=== PATIENT | female | born 1995 | race Caucasian/White ===

== ENCOUNTER 2018-06-13 06:55 | Emergency (ER) | payer OTHER, BC ==
[2018-06-13] MEDS ORDERED: Acetaminophen 325 MG Tab PO ONE (07:17)
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
--- NOTE | 2018-06-13 09:51 | CR ---
Lumbar spine: AP and lateral views of the lumbar spine were obtained. Comparison: No prior lumbar spine imaging. Vertebral body heights and disc spaces are maintained. Pedicles as well as visualized transverse and spinous processes are intact. No subluxation or fracture is seen. Impression: 1. No abnormality is identified on two-view lumbar spine exam. Diagnostic code #1
== END 2018-06-13 07:55 | disposition home or self-care (01) ==
LOC: JD.ED 06:55
DX: S39.012A Strain of muscle, fascia and tendon of lower back, initial encounter (principal); Z91.040 Latex allergy status; Z88.5 Allergy status to narcotic agent; V59.49XA Driver of pick-up truck or van injured in collision with other motor vehicles in traffic accident, initial encounter; Y92.411 Interstate highway as the place of occurrence of the external cause
CPT/HCPCS: 72100; 99284; A9270

== ENCOUNTER 2018-09-15 08:10 | Emergency (ER) | payer BC ==
--- NOTE | 2018-09-15 09:04 | EDM.PDOC ---
ED HPI GENERAL MEDICAL PROBLEM - General Chief Complaint: Genitourinary Problem Stated Complaint: TAMPON STUCK IN VAGINA Time Seen by Provider: 09/15/18 08:40 Source of Information: Reports: Patient History Limitations: Reports: No Limitations - History of Present Illness INITIAL COMMENTS - FREE TEXT/NARRATIVE: The patient presents with a tampon in her vagina. She put a super absorbent tampon in last night and she cannot find the strings to get it out. She cannot feel it either. She has some dull cramps but she is on her period. Onset: Gradual Duration: Day(s): (Last night) Location: Reports: Pelvis (Ach) Quality: Reports: Ache Severity: Mild Improves with: Reports: None Worsens with: Reports: None Associated Symptoms: Reports: No Other Symptoms Lower Pelvic Pain Score (Numeric/FACES): 3 - Related Data Allergies Allergy/AdvReac Type Severity Reaction Status Date / Time latex Allergy Hives Verified 09/15/18 08:29 hydromorphone [From Dilaudid] AdvReac Other Verified 09/15/18 08:29 Home Meds: Home Meds . [No Known Home Meds] 01/03/18 [History] Past Medical History - Past Health History Medical/Surgical History: Denies Medical/Surgical History Psychiatric History: Reports: Depression Other Psychiatric History: patient states she is supposed to be taking her depression meds but has not been taking them as she should Social & Family History - Caffeine Use Caffeine Use: Reports: Coffee, Energy Drinks, Soda, Tea ED ROS GENERAL - Review of Systems Review Of Systems: See Below Constitutional: Reports: No Symptoms HEENT: Reports: No Symptoms Respiratory: Reports: No Symptoms Cardiovascular: Reports: No Symptoms Endocrine: Reports: No Symptoms GI/Abdominal: Reports: Abdominal Pain (ache) : Reports: Other (pelvic ache) ED EXAM, RENAL/ - Physical Exam Exam: See Below Exam Limited By: No Limitations General Appearance: Alert, No Apparent Distress Ears: Normal External Exam Nose: Normal Inspection Head: Atraumatic, Normocephalic Neck: Normal Inspection Respiratory/Chest: No Respiratory Distress (Female) Exam: Other (Vaginal bleeding and a tampon was found and removed fully intact) Course - Vital Signs Last Recorded V/S: Last Vital Signs Temp 97.8 F 09/15/18 08:21 Pulse 102 H 09/15/18 08:21 Resp 18 09/15/18 08:21 BP 109/75 09/15/18 08:21 Pulse Ox 98 09/15/18 08:21 - Re-Assessments/Exams Free Text/Narrative Re-Assessment/Exam: 09/15/18 09:03 I was able to find the tampon and it was intact. I will discharge her home. Departure - Departure Time of Disposition: 09:05 Disposition: Home, Self-Care 01 Condition: Good Clinical Impression: Retained tampon Qualifiers: Encounter type: initial encounter Qualified Code(s): T19.2XXA - Foreign body in vulva and vagina, initial encounter - Discharge Information *PRESCRIPTION DRUG MONITORING PROGRAM REVIEWED*: Not Applicable *COPY OF PRESCRIPTION DRUG MONITORING REPORT IN PATIENT FRANCIS: Not Applicable Referrals: Adina Spence PA-C [Primary Care Provider] - Additional Instructions: Please return if you have any more concerns.
== END 2018-09-15 09:05 | disposition home or self-care (01) ==
LOC: JD.ED 08:10
DX: T19.2XXA Foreign body in vulva and vagina, initial encounter (principal); Z91.040 Latex allergy status; Z88.5 Allergy status to narcotic agent
CPT/HCPCS: 99282; 99283

== ENCOUNTER 2020-04-12 16:51 | Emergency (ER) | payer BC ==
--- NOTE | 2020-04-12 17:22 | EDM.PDOC ---
<Nicolas Dimas - Last Filed: 04/12/20 19:02> ED HPI GENERAL MEDICAL PROBLEM - General Chief Complaint: Abdominal Pain Stated Complaint: RIGHT SIDE LOWER ABD PAIN Time Seen by Provider: 04/12/20 17:12 - History of Present Illness INITIAL COMMENTS - FREE TEXT/NARRATIVE: 24-year-old female presents to the emergency room with significant right lower quadrant pain. She has had some vague abdominal discomfort through most of the day. Then about an hour before arrival it became very severe. She said some nausea with this no associated vomiting or diarrhea. She has not had any constipation. She is not aware of any fevers or chills. Driving in the car makes the pain a lot worse especially hitting bumps. Patient has no prior history of abdominal surgeries she has had problems with ovarian cyst in the past but this is different. Patient denies she uses control. She had her period almost 2 weeks ago. - Related Data Allergies Allergy/AdvReac Type Severity Reaction Status Date / Time latex Allergy Hives Verified 09/15/18 08:29 hydromorphone [From Dilaudid] AdvReac Other Verified 09/15/18 08:29 Home Meds: Home Meds FLUoxetine [PROzac] 40 mg PO DAILY 04/12/20 [History] Hydrocodone/Acetaminophen [Hydrocodon-Acetaminophen 5-325] 1 each PO Q4H PRN #15 tablet 04/12/20 [Rx] Omeprazole 20 mg PO DAILY 04/12/20 [History] busPIRone [Buspar] 10 mg PO DAILY 04/12/20 [History] hydrOXYzine HCL [hydrOXYzine] 50 mg PO DAILY 04/12/20 [History] lamoTRIgine [Lamictal] 200 mg PO DAILY 04/12/20 [History] norgestimate-ethinyl estradioL [Sprintec 28 Day Tablet] 1 tab PO DAILY 04/12/20 [History] valACYclovir [Valtrex] 1,000 mg PO DAILY 04/12/20 [History] Past Medical History - Past Health History Medical/Surgical History: Denies Medical/Surgical History 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 Denies: Constipation, Diarrhea, Vomiting : Reports: No Symptoms Musculoskeletal: Reports: No Symptoms Skin: Reports: No Symptoms ED EXAM, GI/ABD - Physical Exam Exam: See Below Exam Limited By: No Limitations General Appearance: Alert, No Apparent Distress Head: Atraumatic, Normocephalic Neck: Normal Inspection, Supple, Non-Tender, Full Range of Motion. No: Lymphadenopathy (L), Lymphadenopathy (R) Respiratory/Chest: No Respiratory Distress, Lungs Clear, Normal Breath Sounds Cardiovascular: Regular Rate, Rhythm, No Edema, No Murmur GI/Abdominal Exam: Normal Bowel Sounds, Guarding, Rebound, Tender (Significant right lower quadrant discomfort with palpation with associated rebound discomfort. And then she developed some guarding after pressing on her abdomen. If I pound on her right heel with her leg outstretched this causes significant pain in this area) Course - Re-Assessments/Exams Free Text/Narrative Re-Assessment/Exam: 04/12/20 19:10 Labs are not that remarkable patient is in CT at this point awaiting the results of this. At this time is change of shift further care and disposition per Luna Abebe nurse practitioner. Departure - Departure Disposition: Home, Self-Care 01 Clinical Impression: Ovarian cyst Qualifiers: Laterality: right Qualified Code(s): N83.201 - Unspecified ovarian cyst, right side - Discharge Information Prescriptions: Hydrocodone/Acetaminophen [Hydrocodon-Acetaminophen 5-325] 1 each PO Q4H PRN #15 tablet PRN Reason: Pain Instructions: Ovarian Cyst, [id number] Referrals: Adina Spence PA-C [Primary Care Provider] - Elena Hays MD [Physician] - Forms: ED Department Discharge, ED Return to Work/School Form Additional Instructions: You were seen in the emergency department today for right lower quadrant abdominal pain. Work-up included blood work, Alysis, CT scan of the abdomen pelvis, and a pelvic ultrasound. Results of your work-up were consistent with a diagnosis of a right-sided hemorrhagic ovarian cyst. While in the ER, you received a small amount of morphine through your IV for pain management. Recommend that you take ibuprofen routinely for management of pain. Her pain not relieved by ibuprofen, a prescription for [place] has been sent to [place] [facility]. Take this medication as prescribed. Do not drive or work for 12 hours after taking this medication as it can be sedating. Recommend that you call to schedule a follow-up appointment with Dr. Hays for sometime this week. Return to ER for any new or worsening symptoms. Sepsis Event Note (ED) - Evaluation Sepsis Screening Result: No Definite Risk <Luna Abebe - Last Filed: 04/16/20 21:58> Course - Vital Signs Last Recorded V/S: Last Vital Signs Temp 97.3 F 04/12/20 17:07 Pulse 75 04/12/20 17:07 Resp 16 04/12/20 17:07 BP 125/90 04/12/20 17:07 Pulse Ox 96 04/12/20 17:07 - Orders/Labs/Meds Labs: Laboratory Tests 04/12/20 04/12/20 04/12/20 Range/Units 17:25 17:25 17:59 WBC 8.19 (3.98-10.04) K/mm3 RBC 4.37 (3.98-5.22) M/mm3 Hgb 12.6 D (11.2-15.7) gm/dl Hct 37.3 (34.1-44.9) % MCV 85.4 (79.4-94.8) fl MCH 28.8 (25.6-32.2) pg MCHC 33.8 (32.2-35.5) g/dl RDW Std Deviation 45.1 (36.4-46.3) fL Plt Count 297 (182-369) K/mm3 MPV 10.7 (9.4-12.3) fl Neut % (Auto) 54.7 (34.0-71.1) % Lymph % (Auto) 35.3 (19.3-51.7) % Lawrence % (Auto) 9.6 (4.7-12.5) % Eos % (Auto) 0.1 L (0.7-5.8) Baso % (Auto) 0.2 (0.1-1.2) % Neut # (Auto) 4.47 (1.56-6.13) K/mm3 Lymph # (Auto) 2.89 (1.18-3.74) K/mm3 Lawrence # (Auto) 0.79 H (0.24-0.36) K/mm3 Eos # (Auto) 0.01 L (0.04-0.36) K/mm3 Baso # (Auto) 0.02 (0.01-0.08) K/mm3 Sodium (136-145) mEq/L Potassium (3.5-5.1) mEq/L Chloride (98-107) mEq/L Carbon Dioxide (21-32) mEq/L Anion Gap (5-15) BUN (7-18) mg/dL Creatinine (0.55-1.02) mg/dL Est Cr Clr Drug Dosing mL/min Estimated GFR (MDRD) (>60) mL/min BUN/Creatinine Ratio (14-18) Glucose (74-106) mg/dL Calcium (8.5-10.1) mg/dL Total Bilirubin (0.2-1.0) mg/dL AST (15-37) U/L ALT (14-59) U/L Alkaline Phosphatase (46-116) U/L Total Protein (6.4-8.2) g/dl Albumin (3.4-5.0) g/dl Globulin gm/dL Albumin/Globulin Ratio (1-2) Urine Color Yellow (Yellow) Urine Appearance Clear (Clear) Urine pH 6.5 (5.0-8.0) Ur Specific [place] > or = 1.030 (1.005-1.030) Urine Protein Trace H (Negative) Urine Glucose (UA) Negative (Negative) Urine Ketones Trace H (Negative) Urine Occult Blood Negative (Negative) Urine Nitrite Negative (Negative) Urine Bilirubin Negative (Negative) Urine Urobilinogen 1.0 (0.2-1.0) Ur Leukocyte Esterase Negative (Negative) Urine RBC 0-5 (0-5) /hpf Urine WBC 0-5 (0-5) /hpf Ur Squamous Epith Cells 10-20 H (0-5) /hpf Urine Bacteria Few (FEW) /hpf Urine Mucus Few (FEW) /hpf Urine HCG, Qual Negative (NEGATIVE) 04/12/20 Range/Units 17:59 WBC (3.98-10.04) K/mm3 RBC (3.98-5.22) M/mm3 Hgb (11.2-15.7) gm/dl Hct (34.1-44.9) % MCV (79.4-94.8) fl MCH (25.6-32.2) pg MCHC (32.2-35.5) g/dl RDW Std Deviation (36.4-46.3) fL Plt Count (182-369) K/mm3 MPV (9.4-12.3) fl Neut % (Auto) (34.0-71.1) % Lymph % (Auto) (19.3-51.7) % Lawrence % (Auto) (4.7-12.5) % Eos % (Auto) (0.7-5.8) Baso % (Auto) (0.1-1.2) % Neut # (Auto) (1.56-6.13) K/mm3 Lymph # (Auto) (1.18-3.74) K/mm3 Lawrence # (Auto) (0.24-0.36) K/mm3 Eos # (Auto) (0.04-0.36) K/mm3 Baso # (Auto) (0.01-0.08) K/mm3 Sodium 138 (136-145) mEq/L Potassium 3.7 (3.5-5.1) mEq/L Chloride 103 (98-107) mEq/L Carbon Dioxide 26 (21-32) mEq/L Anion Gap 12.7 (5-15) BUN 8 (7-18) mg/dL Creatinine 0.8 (0.55-1.02) mg/dL Est Cr Clr Drug Dosing 90.47 mL/min Estimated GFR (MDRD) > 60 (>60) mL/min BUN/Creatinine Ratio 10.0 L (14-18) Glucose 86 (74-106) mg/dL Calcium 9.2 (8.5-10.1) mg/dL Total Bilirubin 0.4 (0.2-1.0) mg/dL AST 20 (15-37) U/L ALT 28 (14-59) U/L Alkaline Phosphatase 81 (46-116) U/L Total Protein 6.7 (6.4-8.2) g/dl Albumin 3.5 (3.4-5.0) g/dl Globulin 3.2 gm/dL Albumin/Globulin Ratio 1.1 (1-2) Urine Color (Yellow) Urine Appearance (Clear) Urine pH (5.0-8.0) Ur Specific [place] (1.005-1.030) Urine Protein (Negative) Urine Glucose (UA) (Negative) Urine Ketones (Negative) Urine Occult Blood (Negative) Urine Nitrite (Negative) Urine Bilirubin (Negative) Urine Urobilinogen (0.2-1.0) Ur Leukocyte Esterase (Negative) Urine RBC (0-5) /hpf Urine WBC (0-5) /hpf Ur Squamous Epith Cells (0-5) /hpf Urine Bacteria (FEW) /hpf Urine Mucus (FEW) /hpf Urine HCG, Qual (NEGATIVE) Meds: Medications Discontinued Medications Generic Name Dose Route Start Last Admin Trade Name Freq PRN Reason Stop Dose Admin Lactated Ringer's 1,000 mls @ 999 mls/hr 04/12/20 18:14 04/12/20 18:31 Ringers, Lactated IV 04/12/20 19:14 999 mls/hr .BOLUS ONE Administration Lactated Ringer's 1,000 mls @ 125 mls/hr 04/12/20 18:15 04/12/20 19:38 Ringers, Lactated IV 125 mls/hr ASDIRECTED [place] Administration Morphine Sulfate 2 mg 04/12/20 20:10 04/12/20 20:17 Morphine IVPUSH 04/12/20 20:11 2 mg ONETIME ONE Administration - Re-Assessments/Exams Free Text/Narrative Re-Assessment/Exam: 04/12/202014 Care assumed from Dr. Lizabeth Rodas MD at end of shift. CT scan of the abdomen pelvis shows enlarged right ovary containing a hemorrhagic cyst. Small amount of free fluid within the pelvis above physiologic limits, nonspecific. I did reexamine the patient myself. She has significant right lower quadrant tenderness with positive rebound tenderness. She also complains of referred pain to the right lower quadrant from with palpation to essentially any area of your abdomen with the exception of the left upper quadrant. Pelvic exam was completed and was positive for cervical motion tenderness. There was no abnormal or bloody discharge within the vagina. Called and spoke with the AUTO BODY ESTIMATOR on-call, Dr. Hays. She recommended that we complete an ultrasound of the abdomen pelvis and notify her with the results. I have ordered a transvaginal non-OB ultrasound. Have also ordered morphine 2 mg IV as patient is quite uncomfortable. 04/12/20 21:25 Results of the transvaginal ultrasound showed a moderate amount of nonspecific free fluid in the cul-de-sac. Hemorrhagic cyst cysts of the right ovary. No further work-up necessary according to guidelines. Flow confirmed to right ovary. Results discussed with Dr. Hays. She was also able to visualize the ultrasound at home. She verbalized that pain is likely due to the hemorrhagic cyst. She recommended that she follow-up with her in the clinic sometime this coming week. We will send a prescription for [place] for pain. Discharge instructions as documented. Departure - Departure Time of Disposition: 21:32 Condition: Good - Discharge Information *PRESCRIPTION DRUG MONITORING PROGRAM REVIEWED*: Yes *COPY OF PRESCRIPTION DRUG MONITORING REPORT IN PATIENT FRANCIS: No
[2020-04-12] MEDS ORDERED: Lactated Ringers 1,000 ML IV ONE (18:14)
[2020-04-12] MEDS ORDERED: Lactated Ringers 1,000 ML IV SCH (18:15)
[2020-04-12] MEDS ORDERED: Morphine 2 MG/ML SYRINGE IVPUSH ONE (20:10)
--- NOTE | 2020-04-13 08:44 | CT ---
Addendum created by Cali Tan MD on 04/12/2020 8:20 PM Central Time ([place] & [place]): Impression: 3. These findings were not present on January 03, 2018. Initial Report created on 04/12/2020 8:20 PM Central Time ([place] & [place]): PROCEDURE INFORMATION: Exam: CT Abdomen And Pelvis With Contrast Exam date and time: 04/12/2020 6:12 PM Age: 24 years old Clinical indication: Abdominal pain; Patient HX: Lower abd pain TECHNIQUE: Imaging protocol: Computed tomography of the abdomen and pelvis with intravenous contrast. Contrast material: ISOVUE 300; Contrast volume: 96 ml; Contrast route: INTRAVENOUS (IV); COMPARISON: CT Chest Abdomen Pelvis w Cont 01/03/2018 11:32 PM FINDINGS: Lungs: There are dependent densities at each lung base, most likely reflecting passive atelectasis. Liver: The liver is normal in architecture, without suspicious abnormality. Gallbladder and bile ducts: No calcified gallstones. No ductal dilation. Pancreas: The pancreatic parenchyma is normal in bulk and sharply marginated. Duct is not dilated. No calcifications, masses, or abnormal fluid collections. Spleen: Spleen is normal in size. No mass or fluid collection. Adrenal glands: There are no adrenal masses. Kidneys and ureters: Normal in parenchymal bulk. No hydronephrosis or asymmetric perinephric stranding. No solid masses. No stones. Stomach and bowel: No significant abnormalities of the stomach. There are no dilated or thickened small bowel loops. Gas and stool are seen in the colon to the rectum. No mass. Appendix: The appendix is seen. It is normal. Intraperitoneal space: Small amount of free fluid in the pelvis above physiologic limits, nonspecific. There is no pneumoperitoneum, abscess, or mass. Vasculature: No aneurysm. Lymph nodes: No enlarged lymph nodes. Urinary bladder: Unremarkable as visualized. Reproductive: Enlarged right ovary measuring approximately 6 x 3.3 by 4.3 cm. Ovoid right ovarian nodule whose attenuation is above that of fluid. The lesion measuring 2.5 x 4.2 cm. Appearance consistent with hemorrhagic cyst. Bones/joints: Age appropriate. No acute fracture. No dislocation. There are no suspicious lytic or osteosclerotic lesions. Soft tissues: No suspicious soft tissue masses, soft tissue gas of significance, or hernia. IMPRESSION: 1. Enlarged right ovary containing a hemorrhagic cyst. 2. Small amount of free fluid in the pelvis above physiologic limits, nonspecific. Thank you for allowing us to participate in the care of your patient. Dictated and Authenticated by: Cali aTn MD 04/12/2020 8:20 PM Central Time ([place] & [place]) [facility]
--- NOTE | 2020-04-13 08:46 | US ---
PROCEDURE INFORMATION: Exam: US Pelvis, Transvaginal Exam date and time: 04/12/2020 8:43 PM Age: 24 years old Clinical indication: Pelvic pain; Patient HX: Rlq pain, CT shows hemorrhagic cyst in right ovary TECHNIQUE: Imaging protocol: Real-time transvaginal pelvic ultrasound with image documentation. Transvaginal imaging was used for better evaluation of the endometrium, adnexa, and/or cervix. COMPARISON: CT Abdomen Pelvis w Cont 04/12/2020 6:12 PM FINDINGS: Uterus/cervix: Uterus is normal in size and echogenicity. No myometrial mass. Its dimensions are 7.2 x 5 x 4 cm. Normal. No endometrial mass. No fluid in the canal. Endometrial canal 1.1 cm, within normal limits. Right adnexa: Right ovary is seen. Blood flow is present. Corresponding to CT abnormality, there is a hemorrhagic cyst of the right ovary measuring 3.4 x 3 x 2.3 cm.Follow-up not needed. No suspicious mass. The right ovary measures 4.6 x 4.4 x 3.2 cm. Left adnexa: Left ovary is seen. Blood flow is present. No suspicious mass. Left ovary measures 3.7 x 2.8 x 2 cm. Multiple follicles are present. Intraperitoneal space: Moderate amount of nonspecific free fluid in the cul-de-sac. IMPRESSION: 1. Moderate amount of nonspecific free fluid in the cul-de-sac. 2. Hemorrhagic cyst right ovary. No further workup necessary according to guidelines. 3. Blood flow confirmed to the right ovary. Thank you for allowing us to participate in the care of your patient. Dictated and Authenticated by: Cali Tan MD 04/12/2020 10:15 PM Central Time ([place] & [place]) [facility]Robert
== END 2020-04-12 21:39 | disposition home or self-care (01) ==
LOC: JD.ED 16:51
DX: N83.201 Unspecified ovarian cyst, right side (principal); F41.9 Anxiety disorder, unspecified; F32.9 Major depressive disorder, single episode, unspecified; Z91.040 Latex allergy status; Z88.5 Allergy status to narcotic agent; Z79.899 Other long term (current) drug therapy
CPT/HCPCS: 36415; 74177; 76830; 80053; 81001; 81025; 85025; 96374; 99284; J2270; J7120

== ENCOUNTER 2020-08-19 15:14 | Emergency (ER) | payer BC ==
[2020-08-19] MEDS ORDERED: Sodium Chloride 0.9% 10 ML Syringe FLUSH PRN (15:38)
[2020-08-19] MEDS ORDERED: Ondansetron 4 MG/2 ML SDV IVPUSH ONE (15:38)
[2020-08-19] MEDS ORDERED: Sodium Chloride 0.9% 1,000 ML IV STA (15:38)
[2020-08-19] MEDS ORDERED: fentaNYL 100 MCG/2 ML SDV IVPUSH ONE (15:42)
--- NOTE | 2020-08-19 16:01 | EDM.PDOC ---
ED HPI GENERAL MEDICAL PROBLEM - General Chief Complaint: Gastrointestinal Problem Stated Complaint: RIB/BACK PAIN/VOMITING/SOB Time Seen by Provider: 08/19/20 15:23 Source of Information: Reports: Patient History Limitations: Reports: No Limitations - History of Present Illness INITIAL COMMENTS - FREE TEXT/NARRATIVE: The patient presents with right upper quadrant abdominal pain, nausea and vomiting. This all started just before arrival. She was at the dog park and had a zinger drink that has orange juice, red bull, and blue raspberry juice. She developed the pain shortly after. She last ate around 11:30am. She says she has a family history of gallbladder issues. She still has her gallbladder and appendix. She has no diarrhea or dysuria. She did not eat any bad food or has been around anyone who is sick. She says the pain radiated to her back. Onset: Sudden Duration: Minutes: Location: Reports: Abdomen, Back Quality: Reports: Sharp Severity: Severe Improves with: Reports: None Worsens with: Reports: None Associated Symptoms: Reports: Fever/Chills, Nausea/Vomiting. Denies: Chest Pain, Cough, Headaches, Shortness of Breath - Related Data Allergies Allergy/AdvReac Type Severity Reaction Status Date / Time latex Allergy Hives Verified 08/19/20 15:27 hydromorphone [From Dilaudid] AdvReac Other Verified 08/19/20 15:27 Home Meds: Home Meds FLUoxetine [PROzac] 40 mg PO DAILY 04/12/20 [History] Omeprazole 20 mg PO DAILY 04/12/20 [History] busPIRone [Buspar] 10 mg PO DAILY 04/12/20 [History] hydrOXYzine HCL [hydrOXYzine] 50 mg PO DAILY 04/12/20 [History] lamoTRIgine [Lamictal] 200 mg PO DAILY 04/12/20 [History] norgestimate-ethinyl estradioL [Sprintec 28 Day Tablet] 1 tab PO DAILY 04/12/20 [History] valACYclovir [Valtrex] 1,000 mg PO DAILY 04/12/20 [History] Hydrocodone/Acetaminophen [Hydrocodone-Acetamin 5-325 mg] 1 - 2 each PO Q6HR PRN #15 tablet 08/19/20 [Rx] Ondansetron [Zofran ODT] 4 mg PO Q6H PRN #20 tab.dis 08/19/20 [Rx] Past Medical History - Past Health History Medical/Surgical History: Denies Medical/Surgical History Gastrointestinal History: Reports: GERD 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 Denies: Fever HEENT: Reports: No Symptoms Respiratory: Reports: No Symptoms Cardiovascular: Reports: No Symptoms Endocrine: Reports: No Symptoms GI/Abdominal: Reports: Abdominal Pain, Nausea, Vomiting. Denies: Diarrhea : Reports: No Symptoms Musculoskeletal: Reports: Back Pain (pain radiated to the back) ED EXAM, GI/ABD - Physical Exam Exam: See Below Exam Limited By: No Limitations General Appearance: Alert, No Apparent Distress Ears: Normal External Exam Nose: Normal Inspection Head: Atraumatic, Normocephalic Neck: Normal Inspection Respiratory/Chest: No Respiratory Distress, Lungs Clear, Normal Breath Sounds Cardiovascular: Regular Rate, Rhythm, No Edema, No Murmur GI/Abdominal Exam: Soft, No Organomegaly, No Mass, Tender (Moderate tenderness to the right upper abdomen) Course - Vital Signs Last Recorded V/S: Last Vital Signs Temp 97.0 F 08/19/20 15:24 Pulse 86 08/19/20 15:24 Resp 16 08/19/20 15:24 BP 124/102 H 08/19/20 15:24 Pulse Ox 100 08/19/20 15:24 - Orders/Labs/Meds Orders: Active Orders 24 hr Category Date Time Status Peripheral IV Care [RC] . DIRECTED Care 08/19/20 15:38 Active Abdomen Ltd [US] Stat Exams 08/19/20 15:38 Taken Sodium Chloride 0.9% [Saline Flush] Med 08/19/20 15:38 Active 10 ml FLUSH ASDIRECTED PRN ED Antiemetic Medication Reflex [OM.PC] Stat Oth 08/19/20 15:38 Ordered Peripheral IV Insertion Adult [OM.PC] Stat Oth 08/19/20 15:38 Ordered Medication Orders Sodium Chloride (Sodium Chloride 0.9% 10 Ml Syringe) 10 ml FLUSH ASDIRECTED PRN PRN Reason: Keep Vein Open Last Admin: 08/19/20 15:55 Dose: 10 ml Documented by: TANVI Labs: Laboratory Tests 08/19/20 08/19/20 08/19/20 Range/Units 15:50 15:50 15:50 WBC 8.07 (3.98-10.04) K/mm3 RBC 4.68 (3.98-5.22) M/mm3 Hgb 13.4 (11.2-15.7) gm/dl Hct 39.8 (34.1-44.9) % MCV 85.0 (79.4-94.8) fl MCH 28.6 (25.6-32.2) pg MCHC 33.7 (32.2-35.5) g/dl RDW Std Deviation 45.2 (36.4-46.3) fL Plt Count 311 (182-369) K/mm3 MPV 10.5 (9.4-12.3) fl Neut % (Auto) 54.6 (34.0-71.1) % Lymph % (Auto) 36.4 (19.3-51.7) % [place] % (Auto) 8.6 (4.7-12.5) % Eos % (Auto) 0.1 L (0.7-5.8) Baso % (Auto) 0.2 (0.1-1.2) % Neut # (Auto) 4.40 (1.56-6.13) K/mm3 Lymph # (Auto) 2.94 (1.18-3.74) K/mm3 [place] # (Auto) 0.69 H (0.24-0.36) K/mm3 Eos # (Auto) 0.01 L (0.04-0.36) K/mm3 Baso # (Auto) 0.02 (0.01-0.08) K/mm3 Sodium 141 (136-145) mEq/L Potassium 3.6 (3.5-5.1) mEq/L Chloride 103 (98-107) mEq/L Carbon Dioxide 26 (21-32) mEq/L Anion Gap 15.6 H (5-15) BUN 11 (7-18) mg/dL Creatinine 0.9 (0.55-1.02) mg/dL Est Cr Clr Drug Dosing 83.95 mL/min Estimated GFR (MDRD) > 60 (>60) mL/min BUN/Creatinine Ratio 12.2 L (14-18) Glucose 115 H (74-106) mg/dL Calcium 9.6 (8.5-10.1) mg/dL Total Bilirubin 0.2 (0.2-1.0) mg/dL AST 18 (15-37) U/L ALT 34 (14-59) U/L Alkaline Phosphatase 90 (46-116) U/L Total Protein 7.5 (6.4-8.2) g/dl Albumin 3.8 (3.4-5.0) g/dl Globulin 3.7 gm/dL Albumin/Globulin Ratio 1.0 (1-2) Lipase 94 (73-393) U/L HCG, Qual Negative (NEGATIVE) Meds: Medications Generic Name Dose Route Start Last Admin Trade Name Freq PRN Reason Stop Dose Admin Sodium Chloride 10 ml 08/19/20 15:38 08/19/20 15:55 Sodium Chloride 0.9% 10 Ml Syringe FLUSH 10 ml ASDIRECTED PRN Administration Keep Vein Open Discontinued Medications Generic Name Dose Route Start Last Admin Trade Name Freq PRN Reason Stop Dose Admin Fentanyl 100 mcg 08/19/20 15:42 08/19/20 15:55 Fentanyl 100 Mcg/2 Ml Sdv IVPUSH 08/19/20 15:43 100 mcg ONETIME ONE Administration Sodium Chloride 1,000 mls @ 1,000 mls/hr 08/19/20 15:38 08/19/20 15:51 Normal Saline IV 08/19/20 16:37 1,000 mls/hr .BOLUS STA Administration Ondansetron HCl 4 mg 08/19/20 15:38 08/19/20 15:53 Ondansetron 4 Mg/2 Ml Sdv IVPUSH 08/19/20 15:39 4 mg ONETIME ONE Administration - Re-Assessments/Exams Free Text/Narrative Re-Assessment/Exam: 08/19/20 16:03 I ordered an IV NS 1L bolus, zofran 4mg IV, dilaudid 1mg IV, labs, UA and an US of her right upper abdomen. 08/19/20 17:19 Her CBC and CMP look good. Her lipase is normal. Her HCG is negative. Her US shows cholelithiasis and hepatic steatosis. She feels better. I talked with Dr Maxwell and he can see her tomorrow at 1:30. 08/19/20 17:23 She is still feeling good but I will give her something for pain and nausea. Departure - Departure Time of Disposition: 17:30 Disposition: Home, Self-Care 01 Condition: Good Clinical Impression: Cholelithiasis Qualifiers: Cholelithiasis location: gallbladder Cholecystitis presence: without cholecystitis Biliary obstruction: without biliary obstruction Qualified Code(s ): K80.20 - Calculus of gallbladder without cholecystitis without obstruction - Discharge Information *PRESCRIPTION DRUG MONITORING PROGRAM REVIEWED*: Not Applicable *COPY OF PRESCRIPTION DRUG MONITORING REPORT IN PATIENT FRANCIS: Not Applicable Prescriptions: Hydrocodone/Acetaminophen [Hydrocodone-Acetamin 5-325 mg] 1 - 2 each PO Q6HR PRN #15 tablet PRN Reason: Pain Ondansetron [Zofran ODT] 4 mg PO Q6H PRN #20 tab.dis PRN Reason: Nausea\vomiting Referrals: Adina Spence PA-C [Primary Care Provider] - Jaime Maxwell MD [Physician] - 1 Day Forms: ED Department Discharge Additional Instructions: Try to avoid any fried fatty foods. If you have nausea and vomiting take the zofran every 6 hours as needed. If you have pain try the hydrocodone. Follow up with Dr Maxwell tomorrow at 1:30pm at our clinic. Please come early to register. Please return if you are worse. Sepsis Event Note (ED) - Evaluation Sepsis Screening Result: No Definite Risk - Focused Exam Vital Signs: Vital Signs Temp Pulse Resp BP Pulse Ox 08/19/20 15:24 97.0 F 86 16 124/102 H 100 - My Orders Last 24 Hours: My Active Orders 08/19/20 15:38 Peripheral IV Care [RC] . DIRECTED Abdomen Ltd [US] Stat Sodium Chloride 0.9% [Saline Flush] 10 ml FLUSH ASDIRECTED PRN ED Antiemetic Medication Reflex [OM.PC] Stat Peripheral IV Insertion Adult [OM.PC] Stat - Assessment/Plan Last 24 Hours: My Active Orders 08/19/20 15:38 Peripheral IV Care [RC] . DIRECTED Abdomen Ltd [US] Stat Sodium Chloride 0.9% [Saline Flush] 10 ml FLUSH ASDIRECTED PRN ED Antiemetic Medication Reflex [OM.PC] Stat Peripheral IV Insertion Adult [OM.PC] Stat
--- NOTE | 2020-08-19 17:52 | US ---
Limited abdominal ultrasound: Multiple real-time images of the upper right abdomen were obtained. Comparison: Prior CT abdomen and pelvis study of 01/03/18. Visualized pancreas shows no discrete abnormality. Liver is echogenic as related to the kidney compatible with fatty infiltration. Right kidney shows no hydronephrosis or mass and has a length of 10.4 cm. Single gallstone is noted within the gallbladder measuring around 1.4 cm. No gallbladder wall thickening or biliary duct dilatation is seen. Inferior vena cava is patent. Main portal vein shows normal hepatopedal flow. Impression: 1. Fatty liver. 2. Single gallstone within the gallbladder with no gallbladder wall thickening or biliary duct dilatation. 3. No additional abnormality is appreciated. Diagnostic code #3 I agree with preliminary report from [facility], finalized on 08/19/20, 5:57 PM CDT
== END 2020-08-19 17:38 | disposition home or self-care (01) ==
LOC: JD.ED 15:14
DX: K80.20 Calculus of gallbladder without cholecystitis without obstruction (principal); K21.9 Gastro-esophageal reflux disease without esophagitis; Z86.16 Personal history of COVID-19; Z91.040 Latex allergy status; Z88.5 Allergy status to narcotic agent; Z79.899 Other long term (current) drug therapy
CPT/HCPCS: 36415; 76705; 80053; 83690; 84703; 85025; 96374; 96375; 99284; J2405; J3010; J7030

== ENCOUNTER 2020-08-24 09:23 | Day surgery (SDC) | payer BC ==
--- NOTE | 2020-08-24 09:17 | PCM.PREANE ---
Preanesthetic Assessment - Procedure Proposed Procedure: Laparoscopic Cholecystectomy - Anesthesia/Transfusion/Family Hx Anesthesia History: No Prior Anesthesia Family History of Anesthesia Reaction: No Transfusion History: No Prior Transfusion(s) Intubation History: Unknown - Review of Systems General: No Symptoms Pulmonary: No Symptoms (Smoker: less than 1ppd for less than 5 years ETOH: rarely) Cardiovascular: No Symptoms, Dyspnea on Exertion (from being deconditioned) Gastrointestinal: No Symptoms (GERD-controlled), Nausea Neurological: No Symptoms Other: Reports: Easy Bruising, Sinus Problem (Allergic rhinitis), Depression (History of suicide attempt/ Borderline personality disorder/PTSD), Anxiety - Physical Assessment NPO Status Date: 08/23/20 NPO Status Time: 22:00 Vital Signs: HR:84 Sat:96% Temp:97.2 Resp:16 B/P:134/88 Height: 1.6 m Weight: 84 kg ASA Class: 2 Mental Status: Alert & Oriented x3 Airway Class: Mallampati = 2 Dentition: Reports: Normal Dentition (upper retainer), Caries Thyro-Mental Finger Breadths: 3 Mouth Opening Finger Breadths: 3 ROM/Head Extension: Full Lungs: Clear to Auscultation, Normal Respiratory Effort Cardiovascular: Regular Rate, Regular Rhythm, No Murmurs - Lab Values: All labs reviewed and noted and within acceptable ranges to proceed with scheduled procedure. - Allergies Allergies/Adverse Reactions: Allergies Allergy/AdvReac Type Severity Reaction Status Date / Time corn Allergy Other Verified 08/23/20 14:37 kiwi Allergy Other Verified 08/23/20 14:37 latex Allergy Hives Verified 08/19/20 15:27 hydromorphone [From Dilaudid] AdvReac Other Verified 08/19/20 15:27 - Anesthesia Plan Pre-Op Medication Ordered: None - Acknowledgements Anesthesia Type Planned: General Anesthesia Pt an Appropriate Candidate for the Planned Anesthesia: Yes Alternatives and Risks of Anesthesia Discussed w Pt/Guardian: Yes Pt/Guardian Understands and Agrees with Anesthesia Plan: Yes PreAnesthesia Questionnaire - Past Health History Medical/Surgical History: Denies Medical/Surgical History HEENT History: Reports: Allergic Rhinitis Gastrointestinal History: Genitourinary History: Reports: STD, UTI, Recurrent 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: Reports: Polycystic Ovaries Other OB/BYN History: abnormal uterine bleeding, pelvic pain Psychiatric History: Reports: Anxiety, Bipolar, Depression, PTSD, Suicide Attempt Other Psychiatric History: borderline personality disorder Hematologic History: Reports: Anemia - Infectious Disease History Infectious Disease History: Reports: Herpes, Novel Coronavirus - Past Surgical History HEENT Surgical History: Reports: Oral Surgery - SUBSTANCE USE Tobacco Use Status *Q: Never Tobacco User Recreational Drug Use History: No - HOME MEDS Home Medications: Home Meds FLUoxetine [PROzac] 40 mg PO DAILY 04/12/20 [History] Omeprazole 20 mg PO DAILY 04/12/20 [History] busPIRone [Buspar] 10 mg PO DAILY 04/12/20 [History] hydrOXYzine HCL [hydrOXYzine] 50 mg PO DAILY 04/12/20 [History] lamoTRIgine [Lamictal] 200 mg PO DAILY 04/12/20 [History] norgestimate-ethinyl estradioL [Sprintec 28 Day Tablet] 1 tab PO DAILY 04/12/20 [History] valACYclovir [Valtrex] 1,000 mg PO DAILY PRN 04/12/20 [History] Cranberry 1 cap PO DAILY 08/23/20 [History] Pnv No.95/Ferrous Fum/Folic AC [ Caplet] 1 tab PO DAILY 08/23/20 [History] Pumpkin Seed Extract/Soy Germ [Azo Bladder Control Capsule] 1 cap PO DAILY 08/23/20 [History] - CURRENT (IN HOUSE) MEDS Current Meds: Current Medications Lactated Ringer's (Ringers, Lactated) 1,000 mls @ 125 mls/hr IV ASDIRECTED [place] Stop: 08/24/20 23:00 Lidocaine/Sodium Bicarbonate (Lidocaine 1%/Sod Bicarbonate In Ns 8.4% 1 Ml Syringe) 0.25 ml IDERM ONETIME PRN PRN Reason: Prior to IV Start Stop: 08/24/20 18:00 Sodium Chloride (Sodium Chloride 0.9% 10 Ml Syringe) 10 ml FLUSH ASDIRECTED PRN PRN Reason: Keep Vein Open Stop: 08/24/20 18:00 Discontinued Medications Cefazolin Sodium (Cefazolin 1 Gm Vial) Confirm Administered Dose 2 gm .ROUTE .STK-MED ONE Stop: 08/24/20 07:55 Dexamethasone (Dexamethasone 4 Mg/Ml 5 Ml Mdv) Confirm Administered Dose 20 mg .ROUTE .STK-MED ONE Stop: 08/24/20 07:56 Fentanyl (Fentanyl 250 Mcg/5 Ml Sdv) Confirm Administered Dose 250 mcg .ROUTE .STK-MED ONE Stop: 08/24/20 07:55 Lidocaine HCl (Xylocaine-Mpf 1%) Confirm Administered Dose 4 mls @ as directed .ROUTE .STK-MED ONE Stop: 08/24/20 07:55 Lactated Ringer's (Ringers, Lactated) Confirm Administered Dose 1,000 mls @ as directed .ROUTE .STK-MED ONE Stop: 08/24/20 07:55 Midazolam HCl (Midazolam 1 Mg/Ml 2 Ml Sdv) Confirm Administered Dose 2 mg .ROUTE .STK-MED ONE Stop: 08/24/20 07:55 Ondansetron HCl (Ondansetron 4 Mg/2 Ml Sdv) Confirm Administered Dose 4 mg .ROUTE .STK-MED ONE Stop: 08/24/20 07:55 Propofol (Propofol 200 Mg/20 Ml Sdv) Confirm Administered Dose 400 mg .ROUTE .STK-MED ONE Stop: 08/24/20 07:55 Rocuronium [place] (Rocuronium 50 Mg/5 Ml Vial) Confirm Administered Dose 50 mg .ROUTE .STK-MED ONE Stop: 08/24/20 07:55
[~2020-08-24 09:23] MED LIST: Dexamethasone 4 MG/ML 5 ML MDV ONE; Lactated Ringers 1,000 ML IV SCH; Lactated Ringers 1,000 ML ONE; Lidocaine 1% 4 ML ONE; Lidocaine 1%/Sod Bicarbonate in NS 8.4% 1 ML Syringe IDERM PRN; Midazolam 1 MG/ML 2 ML SDV ONE; Ondansetron 4 MG/2 ML SDV ONE; Propofol 200 MG/20 ML SDV ONE; Rocuronium 50 MG/5 ML Vial ONE; Sodium Chloride 0.9% 10 ML Syringe FLUSH PRN; ceFAZolin 1 GM Vial ONE; fentaNYL 250 MCG/5 ML SDV ONE
[2020-08-24] MEDS ORDERED: Bupivacaine 0.5%/EPINEPHrine 1:200,000 50 ML MDV ONE (09:29)
[2020-08-24] MEDS ORDERED: Ketorolac 30 MG/ML SDV ONE (10:23)
[2020-08-24] MEDS ORDERED: diphenhydrAMINE 50 MG/ML SDV IVPUSH PRN (10:33)
[2020-08-24] MEDS ORDERED: Phenylephrine/Normal Saline 100 MCG/ML 10 ML Syringe IVPUSH PRN (10:33)
[2020-08-24] MEDS ORDERED: Ondansetron 4 MG/2 ML SDV IVPUSH PRN (10:33)
[2020-08-24] MEDS ORDERED: Midazolam 1 MG/ML 2 ML SDV IVPUSH PRN (10:33)
[2020-08-24] MEDS ORDERED: Albuterol 0.083% 2.5 MG/3 ML Neb Soln NEB PRN (10:33)
[2020-08-24] MEDS ORDERED: ePHEDrine 50 MG/ML SDV IVPUSH PRN (10:33)
[2020-08-24] MEDS ORDERED: Ketamine 500 mg/10 ML MDV ONE (10:59)
[2020-08-24] MEDS ORDERED: Propofol 200 MG/20 ML SDV ONE (10:59)
--- NOTE | 2020-08-24 12:00 | PCM.PRNOTE ---
- Free Text/Narrative Note: Date: 08/24/2020 Operation: laparoscopic cholecystectomy Indication: symptomatic cholelithiasis Surgeon: Jaime Maxwell MD Findings: normal anatomy. Gallstones in gallbladder. Critical view of safety obtained. Detailed Report: The patient was taken to the operating room and placed in supine position. Timeout was performed and general endotracheal anesthesia was initiated. The abdomen was prepped and draped in usual sterile fashion. A Veress needle was placed the left upper quadrant to establish pneumoperitoneum. Air was aspirated with needle and syringe just inferior to the umbilicus. A bladed 5 mm trocar was placed blindly at this site. The 5 mm 30 degree laparoscope was inserted into the abdomen. There was no inadvertent injury from Veress placement. The needle was removed and additional ports were placed under laparoscopic visualization. 2 additional 5 mm ports were placed the right upper quadrant, and a 12 mm bladed trocar was placed at the subxiphoid area. The fundus of the gallbladder was grasped and retracted cephalad. The infundibulum was grasped and retracted laterally, and dissection ensued. Hook electrocautery was used to divide visceral peritoneum of the gallbladder and start to expose cystic structures. Combination of hook cautery and dissection with the [place] grasper were used, and a critical view of safety was obtained with 2 and only 2 structures seen going to the gallbladder; the cystic duct and cystic artery. Hemolock clips were placed on the structures, with 2 on the stay side for the cystic duct. Structures were divided sharply with laparoscopic reed. The gallbladder was removed from the liver using electrocautery. The gallbladder re mained intact during dissection was placed in an Endo Catch bag and removed through the subxiphoid port. There was minimal bleeding from the edge of the liver and this was controlled with electrocautery. The dissection field appeared clean. The 12 mm port was removed and this site was closed at the level of fascia with 0 Vicryl using a laparoscopic suture passer. The right upper quadrant ports were removed under laparoscopic visualization and no bleeding was noted. Pneumoperitoneum was released and the final port was removed from the umbilical site. Incisions were all closed at the level of skin with 4-0 Vicryl and dressed with Dermabond. The patient tolerated the procedure well, was extubated in the operating room and transferred to the recovery unit for routine postanesthesia care.
--- NOTE | 2020-08-24 12:05 | PCM.POSTAN ---
POST ANESTHESIA ASSESSMENT - MENTAL STATUS Mental Status: Oriented, Other (Drowsy) - VITAL SIGNS Vital Signs: Last Vital Signs Temp 36.2 C 08/24/20 09:35 Pulse 84 08/24/20 09:35 Resp 16 08/24/20 09:35 BP 134/88 08/24/20 09:35 Pulse Ox 96 08/24/20 09:35 - RESPIRATORY Respiratory Status: Respiratory Rate WNL, Airway Patent, O2 Saturation Stable, Supplemental Oxygen - CARDIOVASCULAR CV Status: Pulse Rate WNL, Blood Pressure Stable - GASTROINTESTINAL GI Status: No Symptoms - PAIN Pain Score: 0 - POST OP HYDRATION Hydration Status: Adequate & Stable
[2020-08-24] MEDS ORDERED: Promethazine 12.5 MG in Sodium Chloride 0.9% 50 ML IV PRN (12:14)
[2020-08-24] MEDS: fentaNYL 100 MCG/2 ML SDV IVPUSH PRN ×4 (12:22→13:45)
[2020-08-24] MEDS ORDERED: HYDROmorphone 0.5 MG/0.5 ML Syringe IVPUSH ONE (12:37)
[2020-08-24] MEDS ORDERED: oxyCODONE 5 MG Tab PO PRN (12:50)
--- NOTE | 2020-08-24 14:08 | PCM48HPAN ---
Post Anesthesia Note - EVALUATION WITHIN 48HRS OF ANESTHETIC Vital Signs in Normal Range: Yes Patient Participated in Evaluation: Yes Respiratory Function Stable: Yes Airway Patent: Yes Cardiovascular Function Stable: Yes Hydration Status Stable: Yes Pain Control Satisfactory: Yes (Improving, oral medications given. ) Nausea and Vomiting Control Satisfactory: Yes (Resolved episode of nausea. ) Mental Status Recovered: Yes Vital Signs: Last Vital Signs Temp 36.3 C 08/24/20 11:57 Pulse 91 08/24/20 13:30 Resp 16 08/24/20 13:30 BP 118/72 08/24/20 13:30 Pulse Ox 94 L 08/24/20 13:30
== END 2020-08-24 14:48 | disposition home or self-care (01) ==
LOC: JD.SDS 09:23
PROVIDERS: ATTEND Surgery
DX: K80.10 Calculus of gallbladder with chronic cholecystitis without obstruction (principal); F17.210 Nicotine dependence, cigarettes, uncomplicated; Z91.040 Latex allergy status; Z91.09 Other allergy status, other than to drugs and biological substances; Z91.018 Allergy to other foods; Z91.5 Personal history of self-harm; Z86.16 Personal history of COVID-19; Z79.899 Other long term (current) drug therapy; Z98.890 Other specified postprocedural states
CPT/HCPCS: 47562; 81025; A9270; J0690; J1100; J1170; J1200; J1885; J2250; J2370; J2405; J2550; J2704; J2710; J3010; J3490; J7120; 00790

== ENCOUNTER 2020-08-26 09:27 | Emergency (ER) | payer BC ==
[2020-08-26] MEDS ORDERED: Dextrose 5%-0.9% NaCl 1,000 ML IV SCH (09:45)
[2020-08-26] MEDS ORDERED: Ondansetron 4 MG/2 ML SDV IVPUSH ONE (09:49)
[2020-08-26] MEDS ORDERED: fentaNYL 100 MCG/2 ML SDV IVPUSH ONE ×2 (09:49→11:24)
--- NOTE | 2020-08-26 09:49 | EDM.PDOC ---
ED HPI GENERAL MEDICAL PROBLEM - General Chief Complaint: General Stated Complaint: ISSUE WITH INCISION AND KIDNEY PAIN POST SURGERY Time Seen by Provider: 08/26/20 09:40 Source of Information: Reports: Patient History Limitations: Reports: No Limitations - History of Present Illness INITIAL COMMENTS - FREE TEXT/NARRATIVE: 24-year-old female presents to the ED primarily for evaluation of postoperative abdominal pain. Patient underwent a laparoscopic cholecystectomy by Dr. Jaime Maxwell 2 days ago August 24. Patient states her dog at home jumped on her abdomen last night and seemed to exacerbate her pain. She feels the same type of pain she had when she was experiencing gallbladder attack or biliary colic. Pain is primarily right upper quadrant the abdomen made worse by deep breathing or coughing. The incision in the right upper abdomen below the costal margin is the one that hurts the worst. It appears that this is where the gallbladder was removed. She also has not had a bowel movement for about 4 days. Poor appetite remains. She took a Percocet tablet about 0330 hrs. this morning with minimal relief of the pain. No associated fever chills nausea or vomiting. No dysuria urgency or frequency. Pain radiates to her right back underneath her scapula. Feels it on both sides but is worse on the right side. Onset Date: 08/24/20 (Had her gallbladder removed laparoscopically on August 24. Continued abdominal pain since.) Duration: Day(s):, Constant, Getting Worse Location: Reports: Abdomen Quality: Reports: Ache (Merrily right upper quadrant epigastric abdominal pain.), Stabbing Severity: Moderate (Occasional sharp stabbing pain. 7-8 out of 10) Improves with: Reports: Rest Worsens with: Reports: Other (Deep breathing or coughing makes it much worse.), Movement Context: Reports: Other (2 days postop laparoscopic cholecystectomy). Denies: Activity, Exercise, Lifting, Sick Contact, Trauma Associated Symptoms: Reports: Loss of Appetite, Malaise, Shortness of Breath (Subjective shortness of breath is taking a deep breath makes the pain in her right upper quadrant worse.). 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.) Abdomen Pain Score (Numeric/FACES): 9 - Related Data Allergies Allergy/AdvReac Type Severity Reaction Status Date / Time corn Allergy Other Verified 08/26/20 09:45 kiwi Allergy Other Verified 08/26/20 09:45 latex Allergy Hives Verified 08/26/20 09:45 hydromorphone [From Dilaudid] AdvReac Other Verified 08/26/20 09:45 Home Meds: Home Meds FLUoxetine [PROzac] 40 mg PO DAILY 04/12/20 [History] Omeprazole 20 mg PO DAILY 04/12/20 [History] busPIRone [Buspar] 10 mg PO DAILY 04/12/20 [History] hydrOXYzine HCL [hydrOXYzine] 50 mg PO DAILY 04/12/20 [History] lamoTRIgine [Lamictal] 200 mg PO DAILY 04/12/20 [History] norgestimate-ethinyl estradioL [Sprintec 28 Day Tablet] 1 tab PO DAILY 04/12/20 [History] valACYclovir [Valtrex] 1,000 mg PO DAILY PRN 04/12/20 [History] Cranberry 1 cap PO DAILY 08/23/20 [History] Pnv No.95/Ferrous Fum/Folic AC [ Caplet] 1 tab PO DAILY 08/23/20 [History] Pumpkin Seed Extract/Soy Germ [Azo Bladder Control Capsule] 1 cap PO DAILY 08/23/20 [History] oxyCODONE 5 mg PO Q4H PRN #20 tab 08/24/20 [Rx] Hydrocodone/Acetaminophen [Hydrocodone-Acetamin 5-325 mg] 1 each PO Q4H PRN #10 tablet 08/25/20 [Rx] Acetaminophen/HYDROcodone [Cotton 325-5 MG] 1 - 2 tab PO Q4H PRN #20 tablet 08/26/20 [Rx] polyethylene glycoL 3350 [MiraLAX] 17 gm PO DAILY #1 cont 08/26/20 [Rx] Past Medical History - Past Health History Medical/Surgical History: Denies Medical/Surgical History HEENT History: Reports: Allergic Rhinitis Gastrointestinal History: Genitourinary History: Reports: STD, UTI, Recurrent WOMEN'S GARMENT FITTER History: Reports: Polycystic Ovaries Other WOMEN'S GARMENT FITTER History: abnormal uterine bleeding, pelvic pain Psychiatric History: Reports: Anxiety, Bipolar, Depression, PTSD, Suicide Attempt Other Psychiatric History: borderline personality disorder Hematologic History: Reports: Anemia - Infectious Disease History Infectious Disease History: 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 Denies: Fever, Chills, Weight Loss HEENT: Reports: No Symptoms Respiratory: Reports: Shortness of Breath (Subjective shortness of breath.). Denies: Pleuritic Chest Pain ( As deep breathing makes the right upper quadrant abdominal pain worse.), Cough, Sputum, Hemoptysis Cardiovascular: Reports: Blood Pressure Problem. Denies: Chest Pain, Claudication, Dyspnea on Exertion, Edema, Lightheadedness, Orthopnea, Palpitations Endocrine: Reports: Fatigue GI/Abdominal: Reports: Abdominal Pain (See history of present illness.), Constipation (No bowel movement for the last 4 days.) : Reports: No Symptoms Musculoskeletal: Reports: No Symptoms Skin: Reports: No Symptoms Neurological: Reports: No Symptoms Psychiatric: Reports: No Symptoms Hematologic/Lymphatic: Reports: No Symptoms Immunologic: Reports: No Symptoms ED EXAM, GENERAL - Physical Exam Exam: See Below Exam Limited By: No Limitations General Appearance: Alert, WD/WN, No Apparent Distress, Other (Temperature is 36.4 degrees and she does not feel warm to palpation. Heart rate is 100 with respiratory to 14 and O2 sats of 96% on room air BP is mildly elevated 1 40-1 01.) Eye Exam: Bilateral Eye: Normal Inspection (No scleral icterus or blepharal pallor.), PERRL Throat/Mouth: Normal Inspection, Normal Lips, Normal Teeth, Normal Oropharynx, Other Head: Atraumatic, Normocephalic (Tongue is moist) Neck: Normal Inspection, Supple, Non-Tender, Full Range of Motion. No: Carotid Bruit, Lymphadenopathy (L), Lymphadenopathy (R) Respiratory/Chest: No Respiratory Distress, Lungs Clear, No Accessory Muscle Use, Decreased Breath Sounds (Decreased breath sounds to the right), Splinting (Side). No: Rales, Rhonchi, Wheezing Cardiovascular: Normal Peripheral Pulses, Regular Rate, Rhythm, No Edema, No Gallop, No Murmur, No Rub Peripheral Pulses: 3+: Carotid (L), Carotid (R), Posterior Tibial (L), Posterior Tibial (R), Dorsalis Pedis (L), Dorsalis Pedis (R) GI/Abdominal: Normal Bowel Sounds, Soft, No Organomegaly, Distended (Mildly distended and tympanic to percussion right upper quadrant and epigastrium.), Tender (Tenderness is associated with laparoscopic surgical wounds. The largest wound is in the upper right mid abdomen just below the costal margin and appears to be the site of removal of gallbladder. This area reveals significant bruising around the wound. She is tender at all puncture wounds. No per) Back Exam: Normal Inspection, Full Range of Motion, CVA Tenderness (R) (Mild), Decreased Range of Motion. No: CVA Tenderness (L) Extremities: Normal Inspection (Painful to sit up from lying down position on the gurney.), Normal Range of Motion, Non-Tender, No Pedal Edema Neurological: Alert, Oriented, CN II-XII Intact, Normal Cognition Psychiatric: Normal Affect, Normal Mood Skin Exam: Warm, Dry, Intact, Ecchymosis (Normal amount of postoperative ecchymoses laparoscopic surgical wounds) Course - Vital Signs Last Recorded V/S: Last Vital Signs Temp 36.4 C 08/26/20 09:34 Pulse 100 08/26/20 09:34 Resp 14 08/26/20 09:34 BP 142/101 H 08/26/20 09:34 Pulse Ox 96 08/26/20 09:34 - Orders/Labs/Meds Orders: Active Orders 24 hr Category Date Time Status URINALYSIS W/MICROSCOPIC [UA W/MICROSCOPIC] [URIN] Stat Lab 08/26/20 09:51 Ordered Dextrose 5%-0.9% NaCl [Dextrose 5%-Normal Saline] 1,000 Med 08/26/20 09:45 Active ml IV ASDIRECTED Medication Orders Dextrose/Sodium Chloride (Dextrose 5%-Normal Saline) 1,000 mls @ 999 mls/hr IV ASDIRECTED [place] Last Admin: 08/26/20 10:02 Dose: 999 mls/hr Documented by: KAREN Labs: Laboratory Tests 08/26/20 08/26/20 Range/Units 10:01 10:01 WBC 8.02 (3.98-10.04) K/mm3 RBC 4.37 (3.98-5.22) M/mm3 Hgb 12.5 (11.2-15.7) gm/dl Hct 37.8 (34.1-44.9) % MCV 86.5 (79.4-94.8) fl MCH 28.6 (25.6-32.2) pg MCHC 33.1 (32.2-35.5) g/dl RDW Std Deviation 47.5 H (36.4-46.3) fL Plt Count 288 (182-369) K/mm3 MPV 10.3 (9.4-12.3) fl Neut % (Auto) 46.4 (34.0-71.1) % Lymph % (Auto) 43.1 (19.3-51.7) % Rice % (Auto) 10.0 (4.7-12.5) % Eos % (Auto) 0.2 L (0.7-5.8) Baso % (Auto) 0.2 (0.1-1.2) % Neut # (Auto) 3.71 (1.56-6.13) K/mm3 Lymph # (Auto) 3.46 (1.18-3.74) K/mm3 Rice # (Auto) 0.80 H (0.24-0.36) K/mm3 Eos # (Auto) 0.02 L (0.04-0.36) K/mm3 Baso # (Auto) 0.02 (0.01-0.08) K/mm3 Sodium 141 (136-145) mEq/L Potassium 3.9 (3.5-5.1) mEq/L Chloride 104 (98-107) mEq/L Carbon Dioxide 28 (21-32) mEq/L Anion Gap 12.9 (5-15) BUN 8 (7-18) mg/dL Creatinine 0.9 (0.55-1.02) mg/dL Est Cr Clr Drug Dosing 80.42 mL/min Estimated GFR (MDRD) > 60 (>60) mL/min BUN/Creatinine Ratio 8.9 L (14-18) Glucose 84 (74-106) mg/dL Calcium 9.1 (8.5-10.1) mg/dL Total Bilirubin 0.2 (0.2-1.0) mg/dL AST 31 (15-37) U/L ALT 54 (14-59) U/L Alkaline Phosphatase 68 (46-116) U/L Total Protein 7.2 (6.4-8.2) g/dl Albumin 3.4 (3.4-5.0) g/dl Globulin 3.8 gm/dL Albumin/Globulin Ratio 0.9 L (1-2) Lipase 83 (73-393) U/L Meds: Medications Generic Name Dose Route Start Last Admin Trade Name Freq PRN Reason Stop Dose Admin Dextrose/Sodium Chloride 1,000 mls @ 999 mls/hr 08/26/20 09:45 08/26/20 10:02 Dextrose 5%-Normal Saline IV 999 mls/hr ASDIRECTED [place] Administration Discontinued Medications Generic Name Dose Route Start Last Admin Trade Name Freq PRN Reason Stop Dose Admin Fentanyl 50 mcg 08/26/20 09:49 08/26/20 10:02 Fentanyl 100 Mcg/2 Ml Sdv IVPUSH 08/26/20 09:50 50 mcg ONETIME ONE Administration Ondansetron HCl 4 mg 08/26/20 09:49 08/26/20 10:02 Ondansetron 4 Mg/2 Ml Sdv IVPUSH 08/26/20 09:50 4 mg ONETIME ONE Administration - Radiology Interpretation Free Text/Narrative:: 24-year-old female presents to the ED 2 days postop laparoscopic cholecystectomy primarily for pain management. She is having increased right upper quadrant abdominal pain and epigastric pain postop. She states her pet dog jumped on her abdomen last night and since then pain is been exacerbated in the right upper quadrant. It hurts to deep breathe and to cough. She took 1 Percocet tablet at 0330 hrs. this morning without any significant relief of the pain. No bowel movement for the last 4 days as well. Has had decreased oral intake of food and fluids since surgery. Examination reveals normal postoperative bruising at laparoscopic surgical wounds. Diffuse abdominal tenderness secondary to operative site pain. Bowel sounds are active in all 4 quadrants. Tympany to percussion right upper quadrant epigastrium. Plan IV D5 normal saline at open. Fentanyl 50 mcg IV for pain relief with Zofran 2 mg IV for nausea. Toradol is relatively contraindicated as the patient is on fluoxetine. 2 view abdomen to be obtained routine labs to include CMP CRP and lipase. It is suspect that increased pain is secondary to carbon dioxide gas accumulation right upper quadrant of the abdomen. She does have some very mild right upper shoulder pain in the distribution of the trapezius muscle. 2 view X-ray of the abdomen will be obtained. - Re-Assessments/Exams Free Text/Narrative Re-Assessment/Exam: 08/26/20 10:19 Hematology reveals a normal white count at 8.02 with 46% neutrophils and 43% lymphocytes on the auto differential. Hemoglobin is 12.5 with hematocrit of 37.8 MCV is normal at 86.5 platelet count normal at 288,000 08/26/20 10:31 2 view of the abdomen has been completed. It does reveal increased air throughout the colon particular the transverse colon. There is increased stool throughout the right hemicolon and hepatic flexure of the transverse colon. There is also stool within the descending colon. There is an area of small bowel increased air in the central abdomen without air-fluid levels to suggest obstruction. Patient is feeling somewhat improved after fentanyl 50 mcg IV with less pain in her back and able to take a deeper breath. 08/26/20 11:10 Sodium is 141 with potassium 3.9. Chloride is 104 with a bicarb of 28. Anion gap is 12.9. BUN is 8 with a creatinine of 0.9 and a GFR greater than 60. Glucose is 84 with a calcium of 9.1. Bilirubin is 0.2 AST 31 ALT of 54. Alkaline phosphatase normal at 68. Total protein is 7.2 with an albumin fraction of 3.4. Lipase is normal at 83. Pain is coming back as the fentanyl has now worn off. Will repeat fentanyl 50 mcg IV. She was discharged on Citroma to take ounces mixed with 6 ounces of Gatorade or Powerade once to provide bowel cleanse. Refill hydrocodone 5/325 mg tablets--1-2 tablets every 4 hours as necessary for pain relief. She will also start MiraLAX powder 17 g daily for the next 2 weeks to prevent further constipation problems. Departure - Departure Time of Disposition: 11:14 Disposition: Home, Self-Care 01 Condition: Fair Clinical Impression: Postoperative abdominal pain, Constipation by delayed colonic transit - Discharge Information *PRESCRIPTION DRUG MONITORING PROGRAM REVIEWED*: Not Applicable *COPY OF PRESCRIPTION DRUG MONITORING REPORT IN PATIENT FRANCIS: Not Applicable Prescriptions: polyethylene glycoL 3350 [MiraLAX] 17 gm PO DAILY #1 cont Acetaminophen/HYDROcodone [Cotton 325-5 MG] 1 - 2 tab PO Q4H PRN #20 tablet PRN Reason: abdominal pain. Referrals: Adina Spence PA-C [Primary Care Provider] - Forms: ED Department Discharge Additional Instructions: Evaluation in the emergency room today in regards to postoperative abdominal pain. Examination reveals pain at sites of abdominal incisions as 1 might anticipate. You are having some right sided chest pain related to air up under your liver along the lower portion of the diaphragm. Your body will reabsorb this area over the next 48 hours. Chest pain shoulder pain should go away completely. X-ray of the abdomen reveals increased stool combined with constipation particular throughout the right side of your colon and underneath the liver causing further discomfort and pain. Lab test do not reveal any signs of infection or problems with your liver or pancreas. Treatment is to continue hydrocodone tablets 5/325 mg strength 1 or 2 every 4-6 hours as necessary for pain relief. You will need to start MiraLAX powder 17 g once daily starting today to help prevent further issues with constipation. You will need to take magnesium citrate or Citroma 10 ounces by mouth mixed with 6 ounces of juice of choice or Gatorade /Powerade when you get home this morning. This will take 1 to 4 hours to work and provide bowel cleanse. You will usually have 1-4 bowel movements after taking the magnesium citrate. Sepsis Event Note (ED) - Evaluation Sepsis Screening Result: No Definite Risk - Focused Exam Vital Signs: Vital Signs Temp Pulse Resp BP Pulse Ox 08/26/20 09:34 36.4 C 100 14 142/101 H 96 - My Orders Last 24 Hours: My Active Orders 08/26/20 09:45 Dextrose 5%-0.9% NaCl [Dextrose 5%-Normal Saline] 1,000 ml IV ASDIRECTED 08/26/20 09:51 URINALYSIS W/MICROSCOPIC [UA W/MICROSCOPIC] [URIN] Stat - Assessment/Plan Last 24 Hours: My Active Orders 08/26/20 09:45 Dextrose 5%-0.9% NaCl [Dextrose 5%-Normal Saline] 1,000 ml IV ASDIRECTED 08/26/20 09:51 URINALYSIS W/MICROSCOPIC [UA W/MICROSCOPIC] [URIN] Stat
--- NOTE | 2020-08-26 10:41 | CR ---
Abdomen: Supine and upright views of the abdomen were obtained. Comparison: Prior abdominal x-ray of 11/30/11. Scattered stool and gas are noted within the colon. Bowel gas pattern is felt to be within normal limits. No abnormal calcifications are seen. No soft tissue abnormality is seen. No free air is seen. Bony structures appear within normal limits. Impression: 1. Nothing acute is seen on upright and supine abdominal x-ray. Diagnostic code #1
[2020-08-26] MEDS ORDERED: Magnesium Citrate Solution 296 ML Bottle PO ONE (11:15)
== END 2020-08-26 11:36 | disposition home or self-care (01) ==
LOC: JD.ED 09:27
DX: K59.01 Slow transit constipation (principal); G89.18 Other acute postprocedural pain; R10.9 Unspecified abdominal pain; Z91.018 Allergy to other foods; Z91.040 Latex allergy status; Z88.5 Allergy status to narcotic agent; Z79.899 Other long term (current) drug therapy
CPT/HCPCS: 36415; 74019; 80053; 81001; 83690; 85025; 96374; 96375; 96376; 99283; A9270; J2405; J3010; J7042; 99284

== ENCOUNTER 2020-09-14 08:50 | Emergency (ER) | payer BC ==
[2020-09-14] MEDS ORDERED: Ketorolac 30 MG/ML SDV IVPUSH ONE (09:28)
--- NOTE | 2020-09-14 09:33 | EDM.PDOC ---
ED HPI GENERAL MEDICAL PROBLEM - General Chief Complaint: Abdominal Pain Stated Complaint: 3 WEEKS POST GALLBLADDER SURGERY HAVING PAIN Time Seen by Provider: 09/14/20 09:07 Source of Information: Reports: Patient History Limitations: Reports: No Limitations - History of Present Illness INITIAL COMMENTS - FREE TEXT/NARRATIVE: 24-year-old female presents to the emergency department today with complaints of right upper quadrant pain. Patient reports she had her gallbladder removed on 23 August and since then has complained of pain however she states that it has been manageable with ibuprofen. She states she had her follow-up appointment with her surgeon, Dr. Maxwell, last week and she said that he reported she is out of the "danger zone ". She states that last night she started developing a stabbing/burning pain to her right upper quadrant and states that she took some ibuprofen it did not help. She got up and went to work today and she states that it became significantly worse. She states she is not even able to palpate her right upper quadrant due to the increase severity of the pain. She denies any recent fever, chills, nausea, vomiting or diarrhea. She states she has been taking MiraLAX daily and is having 2 bowel movements since she started taking that however she states it is not watery stools. Right Abdominal Pain Score (Numeric/FACES): 7 - Related Data Allergies Allergy/AdvReac Type Severity Reaction Status Date / Time corn Allergy Other Verified 08/26/20 09:45 kiwi Allergy Other Verified 08/26/20 09:45 latex Allergy Hives Verified 08/26/20 09:45 hydromorphone [From Dilaudid] AdvReac Other Verified 08/26/20 09:45 Home Meds: Home Meds FLUoxetine [PROzac] 40 mg PO DAILY 04/12/20 [History] Omeprazole 20 mg PO DAILY 04/12/20 [History] busPIRone [Buspar] 10 mg PO DAILY 04/12/20 [History] hydrOXYzine HCL [hydrOXYzine] 50 mg PO DAILY 04/12/20 [History] lamoTRIgine [Lamictal] 200 mg PO DAILY 04/12/20 [History] norgestimate-ethinyl estradioL [Sprintec 28 Day Tablet] 1 tab PO DAILY 04/12/20 [History] valACYclovir [Valtrex] 1,000 mg PO DAILY PRN 04/12/20 [History] Cranberry 2 cap PO DAILY 08/23/20 [History] Pumpkin Seed Extract/Soy Germ [Azo Bladder Control Capsule] 1 cap PO DAILY PRN 08/23/20 [History] Past Medical History - Past Health History Medical/Surgical History: Denies Medical/Surgical History HEENT History: Reports: Allergic Rhinitis Gastrointestinal History: Genitourinary History: Reports: STD, UTI, Recurrent LEGAL INTERNSHIP History: Reports: Polycystic Ovaries Other LEGAL INTERNSHIP History: abnormal uterine bleeding, pelvic pain Psychiatric History: Reports: Anxiety, Bipolar, Depression, Psych Hospitalization(s), PTSD, Suicide Attempt Other Psychiatric History: borderline personality disorder, SA in 2018 Hematologic History: Reports: Anemia - Infectious Disease History Infectious Disease History: Reports: Herpes, Novel Coronavirus - Past Surgical History HEENT Surgical History: Reports: Oral Surgery GI Surgical History: Reports: Cholecystectomy Social & Family History - Family History Family Medical History: No Pertinent Family History - Tobacco Use Tobacco Use Status *Q: Former Tobacco User Years of Tobacco use: 1 Used Tobacco, but Quit: Yes Month/Year Tobacco Last Used: 05/2017 - Caffeine Use Caffeine Use: Reports: Coffee - Recreational Drug Use Recreational Drug Use: No - Living Situation & Occupation Living situation: Reports: Single Occupation: Employed ED ROS GENERAL - Review of Systems Review Of Systems: Comprehensive ROS is negative, except as noted in HPI. ED EXAM, GI/ABD - Physical Exam Exam: See Below Exam Limited By: No Limitations General Appearance: Alert, WD/WN, No Apparent Distress Ears: Normal External Exam, Hearing Grossly Normal Nose: Normal Inspection Throat/Mouth: Normal Inspection, Normal Lips, Normal Voice, No Airway Compromise Head: Atraumatic, Normocephalic Neck: Normal Inspection, Supple, Non-Tender, Full Range of Motion Respiratory/Chest: No Respiratory Distress, Lungs Clear, Normal Breath Sounds, No Accessory Muscle Use, Chest Non-Tender Cardiovascular: Normal Peripheral Pulses, Regular Rate, Rhythm, No Edema, No Murmur GI/Abdominal Exam: Normal Bowel Sounds, Soft, No Distention, Tender (Right upper quadrant significantly tender with light palpation) (Female) Exam: Deferred Rectal (Female) Exam: Deferred Back Exam: Normal Inspection, Full Range of Motion Extremities: Normal Inspection, Normal Range of Motion, Non-Tender, No Pedal Edema, Normal Capillary Refill Neurological: Alert, Oriented, Normal Cognition Psychiatric: Normal Affect, Normal Mood Skin Exam: Warm, Dry, Intact, Normal Color, No Rash, Wound/Incision (Scabbed; cl joleen dry and intact without drainage noted.) Lymphatic: No Adenopathy Course - Vital Signs Text/Narrative:: 24-year-old female post cholecystectomy on August 23. States she has had consistent right upper quadrant discomfort since the procedure however it has been controlled with ibuprofen. She states that she developed worsening right upper quadrant pain starting last evening which was not controlled with ibuprofen. She got up and went to work this morning and states that it became almost unbearable. She describes it as a stabbing/burning type of pain. Right upper quadrant is very tender to minimal palpation. She denies any recent fever, chills, headache, cough, nausea, vomiting or diarrhea. Her laparoscopic sites are healing well. There is no signs or symptoms of infection from the sites. She does have significant right upper quadrant tenderness with palpation. Ordered labs, urinalysis and a urine test. Once this comes back negative I will order CT of the abdomen and pelvis. I have also ordered for the patient to receive Toradol 30 mg IV for the right upper quadrant discomfort. Last Recorded V/S: Last Vital Signs Temp 97.5 F 09/14/20 09:06 Pulse 78 09/14/20 09:06 Resp 12 09/14/20 09:06 BP 139/80 09/14/20 09:06 Pulse Ox 100 09/14/20 09:06 - Orders/Labs/Meds Orders: Active Orders 24 hr Category Date Time Status Sodium Chloride 0.9% [Saline Flush] Med 09/14/20 09:21 Active 10 ml FLUSH ASDIRECTED PRN Saline Lock Insert [OM.PC] Stat Oth 09/14/20 09:21 Ordered Medication Orders Sodium Chloride (Sodium Chloride 0.9% 10 Ml Syringe) 10 ml FLUSH ASDIRECTED PRN PRN Reason: Keep Vein Open Last Admin: 09/14/20 10:57 Dose: 10 ml Documented by: Admin: 09/14/20 09:51 Dose: 10 ml Documented by: JUANITA Labs: Laboratory Tests 09/14/20 09/14/20 09/14/20 Range/Units 09:26 09:26 10:05 WBC 7.91 (3.98-10.04) K/mm3 RBC 4.33 (3.98-5.22) M/mm3 Hgb 12.6 (11.2-15.7) gm/dl Hct 37.3 (34.1-44.9) % MCV 86.1 (79.4-94.8) fl MCH 29.1 (25.6-32.2) pg MCHC 33.8 (32.2-35.5) g/dl RDW Std Deviation 45.6 (36.4-46.3) fL Plt Count 327 (182-369) K/mm3 MPV 10.3 (9.4-12.3) fl Neut % (Auto) 55.6 (34.0-71.1) % Lymph % (Auto) 33.6 (19.3-51.7) % Davis % (Auto) 9.7 (4.7-12.5) % Eos % (Auto) 0.6 L (0.7-5.8) Baso % (Auto) 0.5 (0.1-1.2) % Neut # (Auto) 4.39 (1.56-6.13) K/mm3 Lymph # (Auto) 2.66 (1.18-3.74) K/mm3 Davis # (Auto) 0.77 H (0.24-0.36) K/mm3 Eos # (Auto) 0.05 (0.04-0.36) K/mm3 Baso # (Auto) 0.04 (0.01-0.08) K/mm3 Sodium (136-145) mEq/L Potassium (3.5-5.1) mEq/L Chloride (98-107) mEq/L Carbon Dioxide (21-32) mEq/L Anion Gap (5-15) BUN (7-18) mg/dL Creatinine (0.55-1.02) mg/dL Est Cr Clr Drug Dosing mL/min Estimated GFR (MDRD) (>60) mL/min BUN/Creatinine Ratio (14-18) Glucose (74-106) mg/dL Calcium (8.5-10.1) mg/dL Total Bilirubin (0.2-1.0) mg/dL AST (15-37) U/L ALT (14-59) U/L Alkaline Phosphatase (46-116) U/L C-Reactive Protein (<1.0) mg/dL Total Protein (6.4-8.2) g/dl Albumin (3.4-5.0) g/dl Globulin gm/dL Albumin/Globulin Ratio (1-2) Urine Color Light yellow (Yellow) Urine Appearance Clear (Clear) Urine pH 6.0 (5.0-8.0) Ur Specific [place] 1.015 (1.005-1.030) Urine Protein Negative (Negative) Urine Glucose (UA) Negative (Negative) Urine Ketones Negative (Negative) Urine Occult Blood 1+ H (Negative) Urine Nitrite Negative (Negative) Urine Bilirubin Negative (Negative) Urine Urobilinogen 0.2 (0.2-1.0) Ur Leukocyte Esterase Negative (Negative) Urine RBC 0-5 (0-5) /hpf Urine WBC 0-5 (0-5) /hpf Ur Squamous Epith Cells 5-10 H (0-5) /hpf Urine Bacteria Few (FEW) /hpf Urine Mucus Not seen (FEW) /hpf Urine HCG, Qual Negative (NEGATIVE) 09/14/20 Range/Units 10:05 WBC (3.98-10.04) K/mm3 RBC (3.98-5.22) M/mm3 Hgb (11.2-15.7) gm/dl Hct (34.1-44.9) % MCV (79.4-94.8) fl MCH (25.6-32.2) pg MCHC (32.2-35.5) g/dl RDW Std Deviation (36.4-46.3) fL Plt Count (182-369) K/mm3 MPV (9.4-12.3) fl Neut % (Auto) (34.0-71.1) % Lymph % (Auto) (19.3-51.7) % Davis % (Auto) (4.7-12.5) % Eos % (Auto) (0.7-5.8) Baso % (Auto) (0.1-1.2) % Neut # (Auto) (1.56-6.13) K/mm3 Lymph # (Auto) (1.18-3.74) K/mm3 Davis # (Auto) (0.24-0.36) K/mm3 Eos # (Auto) (0.04-0.36) K/mm3 Baso # (Auto) (0.01-0.08) K/mm3 Sodium 140 (136-145) mEq/L Potassium 3.9 (3.5-5.1) mEq/L Chloride 103 (98-107) mEq/L Carbon Dioxide 27 (21-32) mEq/L Anion Gap 13.9 (5-15) BUN 8 (7-18) mg/dL Creatinine 0.9 (0.55-1.02) mg/dL Est Cr Clr Drug Dosing 83.95 mL/min Estimated GFR (MDRD) > 60 (>60) mL/min BUN/Creatinine Ratio 8.9 L (14-18) Glucose 85 (74-106) mg/dL Calcium 8.8 (8.5-10.1) mg/dL Total Bilirubin 0.3 (0.2-1.0) mg/dL AST 16 (15-37) U/L ALT 28 (14-59) U/L Alkaline Phosphatase 79 (46-116) U/L C-Reactive Protein < 0.2 (<1.0) mg/dL Total Protein 6.8 (6.4-8.2) g/dl Albumin 3.4 (3.4-5.0) g/dl Globulin 3.4 gm/dL Albumin/Globulin Ratio 1.0 (1-2) Urine Color (Yellow) Urine Appearance (Clear) Urine pH (5.0-8.0) Ur Specific [place] (1.005-1.030) Urine Protein (Negative) Urine Glucose (UA) (Negative) Urine Ketones (Negative) Urine Occult Blood (Negative) Urine Nitrite (Negative) Urine Bilirubin (Negative) Urine Urobilinogen (0.2-1.0) Ur Leukocyte Esterase (Negative) Urine RBC (0-5) /hpf Urine WBC (0-5) /hpf Ur Squamous Epith Cells (0-5) /hpf Urine Bacteria (FEW) /hpf Urine Mucus (FEW) /hpf Urine HCG, Qual (NEGATIVE) Meds: Medications Generic Name Dose Route Start Last Admin Trade Name Freq PRN Reason Stop Dose Admin Sodium Chloride 10 ml 09/14/20 09:21 09/14/20 10:57 Sodium Chloride 0.9% 10 Ml Syringe FLUSH 10 ml ASDIRECTED PRN Administration Keep Vein Open Discontinued Medications Generic Name Dose Route Start Last Admin Trade Name Freq PRN Reason Stop Dose Admin Diatrizoate Meglum/Diatrizoate Sod 90 ml 09/14/20 10:02 09/14/20 10:57 Diatrizoate Meglumine/Diatrizoate Sodium 37% 120 Ml Bottle PO 09/14/20 10:03 45 ml ONETIME ONE Administration Iopamidol 100 ml 09/14/20 10:02 09/14/20 10:57 Iopamidol 612 Mg/Ml 100 Ml Bottle IVPUSH 09/14/20 10:03 100 ml ONETIME ONE Administration Ketorolac Tromethamine 30 mg 09/14/20 09:28 09/14/20 09:50 Ketorolac 30 Mg/Ml Sdv IVPUSH 09/14/20 09:29 30 mg ONETIME ONE Administration Sodium Chloride 10 ml 09/14/20 10:02 09/14/20 11:23 Sodium Chloride 0.9% 10 Ml Syringe FLUSH 09/14/20 10:03 10 ml ONETIME ONE Administration - Re-Assessments/Exams Free Text/Narrative Re-Assessment/Exam: 09/14/20 10:46 Hematology is essentially unremarkable. Chemistry reveals a sodium of 140, potassium 3.9, carbon dioxide 27, anion gap 13.9, BUN 8, creatinine 0.9, glucose 85, C-reactive protein less than 0.2 Urinalysis reveals 1+ "blood and 5-10,000 squamous epithelial cells. 09/14/20 11:[address] of the abdomen and pelvis: Liver contains no focal parenchymal abnormality. The spleen appears within normal limits. Adrenal glands show no nodule. No abnormality is appreciated within the pancreas. Previous cholecystectomy is noted. Surgical clips are seen from prior cholecystectomy. Kidney shows symmetric contrast enhancement. No hydronephrosis or masses appreciated. Abdominal aorta shows no aneurysm. No retroperitoneal adenopathy or mesenteric abnormalities are seen. No pelvic mass or adenopathy is noted. No free fluid or inflammatory changes appreciated. Bowel gas pattern appears within normal limits. Appendix is believed to be present and is normal in size. Bone window settings were reviewed which show no acute osseous abnormality. Patient will be discharged home with recommendations that she follow-up with her primary care physician within a week. Departure - Departure Time of Disposition: 11:48 Disposition: Home, Self-Care 01 Condition: Good Clinical Impression: Abdominal pain Qualifiers: Abdominal location: right upper quadrant Qualified Code(s): R10.11 - Right upper quadrant pain - Discharge Information Referrals: Adina Spence PA-C [Primary Care Provider] - Forms: ED Department Discharge Additional Instructions: You were seen in the emergency department today with complaints of right upper quadrant abdominal pain. Lab work, urinalysis and a CT scan of the abdomen and pelvis were completed. These were all completely unremarkable. There is no sign of infection or abscess noted. Recommend that you follow-up with your primary care physician in the next week to 10 days. You may try taking ibuprofen 600 mg alternating with Tylenol 650 mg every 4 hours for the next 48 hours. Should your condition worsen or change do not hesitate returning to the emergency department. Sepsis Event Note (ED) - Evaluation Sepsis Screening Result: No Definite Risk - Focused Exam Vital Signs: Vital Signs Temp Pulse Resp BP Pulse Ox 09/14/20 09:06 97.5 F 78 12 139/80 100 - My Orders Last 24 Hours: My Active Orders 09/14/20 09:21 Sodium Chloride 0.9% [Saline Flush] 10 ml FLUSH ASDIRECTED PRN Saline Lock Insert [OM.PC] Stat - Assessment/Plan Last 24 Hours: My Active Orders 09/14/20 09:21 Sodium Chloride 0.9% [Saline Flush] 10 ml FLUSH ASDIRECTED PRN Saline Lock Insert [OM.PC] Stat
[2020-09-14] MEDS: Sodium Chloride 0.9% 10 ML Syringe FLUSH PRN ×2 (09:51→10:57)
[2020-09-14] MEDS ORDERED: Iopamidol 612 MG/ML 100 ML Bottle IVPUSH ONE (10:02)
[2020-09-14] MEDS ORDERED: Diatrizoate Meglumine/Diatrizoate Sodium 37% 120 ML Bottle PO ONE (10:02)
[2020-09-14] MEDS ORDERED: Sodium Chloride 0.9% 10 ML Syringe FLUSH ONE (10:02)
--- NOTE | 2020-09-14 11:24 | CT ---
CT abdomen and pelvis Technique: Multiple axial sections were obtained from above the dome of the diaphragm inferiorly through the pubic symphysis. Intravenous and oral contrast was utilized. Reconstructed coronal and sagittal images were obtained. Comparison: Prior right upper quadrant abdominal ultrasound of 08/19/[address] abdomen and pelvis study is 01/03/18. Findings: Visualized lung bases shows nothing acute. Liver contains no focal parenchymal abnormality. Spleen appears within normal limits. Adrenal glands show no nodule. No abnormality is appreciated within the pancreas. Previous cholecystectomy is noted. Surgical clips are seen from prior cholecystectomy. Kidneys show symmetric contrast enhancement. No hydronephrosis or mass is appreciated. Abdominal aorta shows no aneurysm. No retroperitoneal adenopathy or mesenteric abnormalities are seen. No pelvic mass or adenopathy is noted. No free fluid or inflammatory change is appreciated. Bowel gas pattern appears within normal limits. Appendix is believed to be present and is normal in size. Bone window settings were reviewed which show no acute osseous abnormality. Impression: 1. Prior cholecystectomy. 2. Other portions of the CT exam of the abdomen and pelvis appear within normal limits. Diagnostic code #2
== END 2020-09-14 12:08 | disposition home or self-care (01) ==
LOC: JD.ED 08:50
DX: R10.11 Right upper quadrant pain (principal); Z87.891 Personal history of nicotine dependence; Z91.018 Allergy to other foods; Z91.040 Latex allergy status; Z88.5 Allergy status to narcotic agent; Z90.49 Acquired absence of other specified parts of digestive tract; Z86.16 Personal history of COVID-19; Z79.899 Other long term (current) drug therapy
CPT/HCPCS: 36415; 74177; 80053; 81001; 81025; 85025; 86140; 96374; 99284; J1885; Q9963; Q9967

== ENCOUNTER 2022-06-25 01:29 | Inpatient (IN) | payer MEDICAID ==
[2022-06-25] MEDS ORDERED: Sodium Chloride 0.9% 10 ML Syringe FLUSH PRN (06:49)
[2022-06-25] MEDS ORDERED: Lidocaine 1% 50 ML MDV INJECT ONE (06:49)
[2022-06-25] MEDS ORDERED: Nalbuphine 10 MG/0.5 ML Syringe IVPUSH PRN (06:49)
[2022-06-25] MEDS ORDERED: Oxytocin/Lactated Ringers 10 UNIT/1,000 ML BAG IV SCH ×2 (07:00→14:00)
[2022-06-25] MEDS: Lactated Ringers 1,000 ML IV SCH ×3 (10:55→22:10)
[2022-06-25] MEDS ORDERED: ePHEDrine 50 MG/ML SDV IVPUSH PRN (11:35)
[2022-06-25] MEDS ORDERED: diphenhydrAMINE 50 MG/ML SDV IVPUSH PRN (11:35)
[2022-06-25] MEDS ORDERED: fentaNYL 100 MCG/2 ML SDV EPIDUR PRN (11:35)
[2022-06-25] MEDS: Ropivacaine 200 MG in Premix Bag 1 BAG EPIDUR SCH ×2 (11:49→20:13)
[2022-06-25] MEDS ORDERED: Acetaminophen 325 MG Tab PO PRN (18:47)
[2022-06-26] MEDS: Lactated Ringers 1,000 ML IV SCH ×2 (02:30→06:16)
[2022-06-26] MEDS ORDERED: Ondansetron 4 MG/2 ML SDV IVPUSH ONE (03:30)
[2022-06-26] MEDS: Ropivacaine 200 MG in Premix Bag 1 BAG EPIDUR SCH (05:04)
[2022-06-26] MEDS ORDERED: Ropivacaine 0.2% PF 2 MG/ML 20 ML SDV ONE (06:00)
[2022-06-26] MEDS ORDERED: Lidocaine 2% with EPINEPHrine 1:200,000 20 ML SDV ONE (06:00)
[2022-06-26] MEDS ORDERED: Sodium Chloride 0.9% 10 ML Syringe FLUSH PRN (06:36)
[2022-06-26] MEDS ORDERED: Metoclopramide 10 MG/2 ML SDV IVPUSH ONE (06:36)
[2022-06-26] MEDS ORDERED: Citric Acid/Sodium Citrate Solution 30 ML Cup PO ONE (06:36)
[2022-06-26] MEDS ORDERED: ceFAZolin 2 GM in Sodium Chloride 0.9% 100 ML IV ONE (06:36)
[2022-06-26] MEDS ORDERED: Azithromycin 500 MG in Sodium Chloride 0.9% 250 ML IV ONE (06:41)
[2022-06-26] MEDS ORDERED: Lactated Ringers 1,000 ML IV SCH (06:45)
[2022-06-26] MEDS ORDERED: Bupivacaine 0.5% 30 ML SDV ONE (07:00)
[2022-06-26] MEDS ORDERED: Phenylephrine HCl In 0.9% NaCl 1 MG/10 ML Vial ONE (07:04)
[2022-06-26] MEDS ORDERED: Ondansetron 4 MG/2 ML SDV ONE (07:04)
[2022-06-26] MEDS ORDERED: Oxytocin 10 Units/1 ML SDV ONE (07:04)
[2022-06-26] MEDS ORDERED: Lactated Ringers 1,000 ML ONE ×2 (07:34)
[2022-06-26] MEDS ORDERED: ceFAZolin 2 GM Vial ONE (07:35)
[2022-06-26] MEDS ORDERED: Dexamethasone 4 MG/ML SDV ONE (07:52)
[2022-06-26] MEDS ORDERED: Metoclopramide 10 MG/2 ML SDV ONE (07:54)
[2022-06-26] MEDS ORDERED: Morphine PF 1 MG/ML Amp ONE (07:55)
[2022-06-26] MEDS ORDERED: Ketorolac 30 MG/ML SDV ONE (07:58)
[2022-06-26] MEDS ORDERED: fentaNYL 100 MCG/2 ML SDV IVPUSH PRN (08:18)
[2022-06-26] MEDS ORDERED: diphenhydrAMINE 50 MG/ML SDV IVPUSH PRN ×2 (08:18→10:21)
[2022-06-26] MEDS ORDERED: Meperidine 50 MG/ML Vial IVPUSH PRN (08:18)
[2022-06-26] MEDS ORDERED: Ondansetron 4 MG/2 ML SDV IVPUSH PRN (08:18)
[2022-06-26] MEDS ORDERED: Sodium Chloride 0.9% 10 ML Syringe FLUSH SCH (09:00)
[2022-06-26] MEDS ORDERED: Naloxone 0.4 MG/ML SDV IVPUSH PRN (10:21)
[2022-06-26] MEDS ORDERED: ePHEDrine 50 MG/ML SDV IVPUSH PRN (10:21)
[2022-06-26] MEDS ORDERED: Dextrose 5%-Lactated Ringers 1,000 ML IV SCH (10:21)
[2022-06-26] MEDS ORDERED: Ondansetron 4 MG/2 ML SDV IV PRN (10:21)
[2022-06-26] MEDS: Simethicone 80 MG Tab.Chew PO SCH ×4 (16:44→20:25)
[2022-06-26] MEDS: Ibuprofen 600 MG Tab PO SCH ×3 (16:44→23:33)
[2022-06-26] MEDS: Prenatal Multivitamin with Calcium/Folic Acid/Iron Tab PO SCH (16:44)
[2022-06-26] MEDS: Docusate Sodium 100 MG Cap PO SCH ×2 (17:05→23:34)
[2022-06-27] MEDS: Ibuprofen 600 MG Tab PO SCH ×3 (05:20→17:15)
[2022-06-27] MEDS: Acetaminophen/oxyCODONE 325-5 MG Tab PO PRN ×3 (07:34→20:27)
[2022-06-27] MEDS: Prenatal Multivitamin with Calcium/Folic Acid/Iron Tab PO SCH ×2 (07:35→13:29)
[2022-06-27] MEDS: Simethicone 80 MG Tab.Chew PO SCH ×5 (07:35→20:27)
[2022-06-27] MEDS: Docusate Sodium 100 MG Cap PO SCH ×3 (07:36→21:45)
[2022-06-28] MEDS: Ibuprofen 600 MG Tab PO SCH ×4 (00:21→11:17)
[2022-06-28] MEDS: Acetaminophen/oxyCODONE 325-5 MG Tab PO PRN (06:47)
[2022-06-28] MEDS: Simethicone 80 MG Tab.Chew PO SCH (08:09)
[2022-06-28] MEDS: Prenatal Multivitamin with Calcium/Folic Acid/Iron Tab PO SCH (08:09)
[2022-06-28] MEDS: Docusate Sodium 100 MG Cap PO SCH (08:10)
== END 2022-06-28 10:23 | disposition home or self-care (01) | DRG 787 ==
LOC: JD.OBCHECK 01:29 → JD.OB 01:30 → JD.OBCHECK 06:49 → OBSVTOIN 07:41 → JD.OB 06-26 07:42
PROVIDERS: ADMIT Obstetrics & Gynecology; ATTEND Obstetrics & Gynecology
PROC: 10D00Z1 Extraction of Products of Conception, Low, Open Approach (ICD-10-PCS; principal; 2022-06-26)
PROC: 10907ZC Drainage of Amniotic Fluid, Therapeutic from Products of Conception, Via Natural or Artificial Opening (ICD-10-PCS; 2022-06-26)
PROC: 10H07YZ Insertion of Other Device into Products of Conception, Via Natural or Artificial Opening (ICD-10-PCS; 2022-06-26)
PROC: 3E033VJ Introduction of Other Hormone into Peripheral Vein, Percutaneous Approach (ICD-10-PCS; 2022-06-26)
PROC: 3E0R3BZ Introduction of Anesthetic Agent into Spinal Canal, Percutaneous Approach (ICD-10-PCS; 2022-06-26)
PROC: 00HU33Z Insertion of Infusion Device into Spinal Canal, Percutaneous Approach (ICD-10-PCS; 2022-06-26)
DX: O99.62 Diseases of the digestive system complicating childbirth (principal); O98.32 Other infections with a predominantly sexual mode of transmission complicating childbirth; K21.9 Gastro-esophageal reflux disease without esophagitis; Z37.0 Single live birth; Z3A.39 39 weeks gestation of pregnancy; A60.09 Herpesviral infection of other urogenital tract; O76 Abnormality in fetal heart rate and rhythm complicating labor and delivery; O99.344 Other mental disorders complicating childbirth; F41.9 Anxiety disorder, unspecified; F31.9 Bipolar disorder, unspecified; F43.10 Post-traumatic stress disorder, unspecified; O99.02 Anemia complicating childbirth; D64.9 Anemia, unspecified; O62.1 Secondary uterine inertia; Z87.891 Personal history of nicotine dependence; Z86.16 Personal history of COVID-19; Z90.49 Acquired absence of other specified parts of digestive tract
CPT/HCPCS: 01967; 36415; 51702; 59025; 82565; 82570; 83615; 84156; 84450; 84460; 84520; 84550; 85025; 86592; 86850; 86900; 86901; 94762; A9270-GY; J0456; J0690; J1100; J1885; J2274; J2405; J2590; J2765; J2795; J3490; J7050; J7120